=== PATIENT | male | born 1945 | race Caucasian/White ===

== ENCOUNTER 2021-09-22 12:29 | Emergency (ER) | payer MEDICARE ==
[~2021-09-22] VITALS: Ht 182.9 cm; Wt 96.2 kg
[2021-09-22 12:53] VITALS: BP 160/81
[2021-09-22] MEDS ORDERED: LACTATED RINGERS 1,000 ML IV STA (12:57)
[2021-09-22] MEDS ORDERED: ZOFRAN IV STA (12:57)
--- NOTE | 2021-09-22 13:03 | NUR ---
ARRIVAL PATIENT ARRIVED TO ED4 VIA W/C WITH FAMILY, C/O NAUSEA,DISSINESS AND POSSIBLE DEHYDRATION, PATIENT STATES THIS HAPPENS SOMETIMES, CAME TO THE ED FOR EVAL, DOCTOR ARMANDO TO THE ROOM TO SEE PATIENT.
--- NOTE | 2021-09-22 13:05 | ER.PDOC ---
General Chief Complaint: Dizziness Stated Complaint: DIZZY,NAUSEA,POSSIBLE DEHYDRATION Time seen by MD: 13:02 Source: patient Exam Limitations: no limitations History of Present Illness Initial Comments Dizziness, nausea and possible dehydration today. Patient has a large part of his colon removed about 19 years ago and told me that when he feels this way he is dehydrated. He has been going through this for the past 19 years and so he usually goes to the emergency room and receive IV fluids and usually symptoms resolve. No chest pain or shortness of breath. No vomiting, diarrhea or abdominal pain. He denies headache. Occurred: this morning Severity: mild Worsened By: nothing Prior symptoms/Treatment: Similar symptoms previous Allergies: Coded Allergies: Penicillins (Verified Allergy, Unknown, ., 09/22/21) formaldehyde (Verified Allergy, Unknown, 09/22/21) hydromorphone (Verified Allergy, Unknown, 09/22/21) Uncoded Allergies: MYCIN (Allergy, Unknown, 09/22/21) Past Medical History Medical History: diabetes, hypertension Surgical History: other Family History Significant Family History: no pertinent family hx Social History Smoking: non-smoker Alcohol Use: none Drug Use: none Review of Systems Constitutional: no symptoms reported Ears: dizziness Throat: no symptoms reported Respiratory: no symptoms reported Cardiovascular: no symptoms reported Gastrointestinal: see HPI Genitourinary: no symptoms reported All Other Systems: Reviewed and Negative Physical Exam General Appearance: alert, no distress EENT: nml eye inspection, PERRL, no nystagmus, nml ENT inspection, pharynx nml, TM's nml Neck: supple Respiratory: no resp distress, breath sounds nml CVS: reg rate & rhythm, heart sounds.nml Abdomen: non-tender, no organomegaly, no distention Skin: color nml, no rash, warm/dry Extremities: non-tender, nml ROM, no pedal edema Neuro/Psych: nml orientation, nml speech/cognition, nml mood/affect Cranial Nerves: nml as tested, no evidence of acute CVA Sensorimotor: nml motor, nml sensation Results/Orders Results/Orders Orders - VIVEK ROBERTS MD Cbc With Auto Diff (09/22/21 12:57) Ekg-Routine (09/22/21 12:57) Troponin I High Sensitivity (09/22/21 12:57) Urinalysis (09/22/21 12:57) Basic Metabolic Panel (09/22/21 12:57) Ringer's Solution,Lactated (Lactated Rin (09/22/21 12:57) Ondansetron Hcl/Pf (Zofran) (09/22/21 12:57) Ringer's Solution,Lactated (Lactated Rin (09/22/21 13:06) Ondansetron Hcl/Pf (Zofran) (09/22/21 13:06) Vital Signs Date Time Temp Pulse Resp B/P (MAP) Pulse Ox O2 Delivery O2 Flow Rate FiO2 09/22/21 14:03 98.0 66 18 155/81 (105) 99 Room Air 09/22/21 12:53 98.0 68 18 99 09/22/21 12:53 98.0 68 18 160/81 (107) 99 Room Air 09/22/21 12:53 98.0 68 18 Administered Medications Medications (Trade) Dose Ordered Sig/Shea Route PRN Reason Start Time Stop Time Status Last Admin Dose Admin Ondansetron HCl (Zofran) 4 mg STAT STAT IV 09/22/21 12:57 09/22/21 13:02 DC 09/22/21 13:09 4 MG Laboratory Tests Test 09/22/21 13:05 09/22/21 13:45 White Blood Count 7.0 10^3/uL (4.5-11.0) Red Blood Count 5.55 10^6/uL (4.50-5.90) Hemoglobin 18.1 g/dL (13.9-16.3) H Hematocrit 51.1 % (37.0-53.0) Mean Corpuscular Volume 92.1 fL (78-100) Mean Corpuscular Hemoglobin 32.6 pg (26-34) Mean Corpuscular Hemoglobin Concent 35.4 g/dL (33-36.5) Red Cell Distribution Width 13.1 % (11.5-14.5) Platelet Count 159 10^3/uL (150-400) Mean Platelet Volume 9.5 fL (7.8-11.0) Neutrophils (%) (Auto) 80.7 % (41.0-85.0) Lymphocytes (%) (Auto) 13.6 % (24.0-44.0) L Monocytes (%) (Auto) 4.7 % (5.0-12.0) L Neutrophils # (Auto) 5.7 10^3/uL (1.8-7.7) Lymphocytes # (Auto) 0.95 10^3/uL1 (1.0-4.8) L Monocytes # (Auto) 0.3 10^3/uL (0.3-0.8) Absolute Immature Granulocyte (auto 0.03 10^3 u/L (0-2) Absolute Eosinophils (auto) 0.0 10^3/uL (0.0-0.2) Immature Granulocytes % 0.40 % (0.00-0.50) Eosinophils % 0.6 % (0.0-5.0) Basophils % 0.4 % (0.0-0.2) H Basophils # 0.0 10^3/uL (0.0-0.1) Sodium Level 138 mmol/L (132-145) Potassium Level 3.7 mmol/L (3.6-5.2) Chloride Level 101.0 mmol/L (96-109) Carbon Dioxide Level 30.3 mmol/L (20.0-32) Glucose Level 101 mg/dL (70-110) Blood Urea Nitrogen 12 mg/dL (7-18) Creatinine 1.24 mg/dL (0.59-1.40) Calcium Level 9.0 mg/dL (8.4-10.5) Anion Gap 10.4 Estimated GFR () 68.8 (>/=60) Est GFR (CKD-EPI)(Non-Afr [place]) 56.8 (>/=60) BUN/Creatinine Ratio 9.0 Troponin I High Sensitivity 10 ng/L (0-75) Urine Collection Type UNKNOWN Urine Color YELLOW Urine Appearance CLEAR Urine Bilirubin NEGATIVE (NEGATIVE) Urine Ketones NEGATIVE (NEGATIVE) Urine Specific [place] 1.015 (1.005-1.030) Urine pH 7.5 (4.5-8.0) Urine Protein NEGATIVE (NEGATIVE) Urine Urobilinogen 0.2 E.U./dL (0.2) Urine Nitrate NEGATIVE (NEGATIVE) Urine Leukocyte Esterase NEGATIVE (NEGATIVE) Urine Glucose (Auto)(UA) NEGATIVE (NEGATIVE) Urine Blood NEGATIVE (NEGATIVE) Progress Progress Urinalysis negative, CBC and chemistry are normal. Troponin is normal. Patient received a liter of NS and had his dizziness has completely resolved. He is feeling better to go home. EKG/XRAY/CT/US EKG: NSR, LVH EKG Comments: HR 66 ER DEPART Departure Time of Disposition: 14:33 Disposition: 01 HOME / SELF CARE / HOMELESS Impression: Primary Impression: Dizziness and giddiness Additional Impression: Dehydration Condition: Improved Referrals: PCP,UNKNOWN (PCP) PRIMARY CARE PROVIDER Additional Instructions: Push fluids at home Follow-up with your PCP in 2 to 3 days Return to ED if worsening or concerns Duration or Time Spent with Pa: 30 min Problem Qualifiers ARMANDO,VIVEK Acuna MD Sep 22, 2021 13:05
[2021-09-22] MEDS ORDERED: LACTATED RINGERS 1,000 ML ONE (13:06)
[2021-09-22] MEDS ORDERED: ZOFRAN ONE (13:06)
--- NOTE | 2021-09-22 13:10 | PCM.EKG ---
[facility] Test Date: 2021-09-22 Test Time: 13:08:05 Pat Name: BRETT BELLA Department: Room: Gender: M [employer] Designer: kirby : 1945 Requested By: VIVEK ROBERTS Order Number: [id number] Reading MD: Vivek ROBERTS Measurements Intervals [place] Rate: 66 P: 19 [place]: 160 QRS: -9 QRSD: 103 T: 2 QT: 433 QTc: 454 Interpretive Statements Sinus rhythm Low voltage, precordial leads Left ventricular hypertrophy No previous ECG available for comparison Electronically Signed On 09-24-2021 9:16:51 CDT by Vivek ROBERTS Please click the below link to view image of tracing.
[2021-09-22 13:16] LABS: BASOPHIL % 0.4 % (0.0-0.2); EOSINOPHIL % 0.6 % (0.0-5.0); LYMPHOCYTES # 0.95 10^3/uL1 (1.0-4.8); LYMPHOCYTES % 13.6 % (24.0-44.0); MEAN CORP HGB 32.6 pg (26-34); MONOCYTES # 0.3 10^3/uL (0.3-0.8); MONOCYTES % 4.7 % (5.0-12.0); NEUTROPHIL # 5.7 10^3/uL (1.8-7.7); NEUTROPHILS % 80.7 % (41.0-85.0); RED CELL DISTRIBUTION WIDTH 13.1 % (11.5-14.5)
[2021-09-22 13:30] LABS: CARBON DIOXIDE 30.3 mmol/L (20.0-32)
[2021-09-22 13:52] LABS: BILIRUBIN,URINE NEGATIVE (NEGATIVE); UROBILINOGEN,URINE 0.2 E.U./dL (0.2)
[2021-09-22 14:03] VITALS: BP 155/81
== END 2021-09-22 14:44 | disposition home or self-care (01) ==
LOC: ER 12:29
DX: E86.0 Dehydration (principal); R42 Dizziness and giddiness; I10 Essential (primary) hypertension; E11.9 Type 2 diabetes mellitus without complications; Z88.0 Allergy status to penicillin; Z88.5 Allergy status to narcotic agent
CPT/HCPCS: 36415; 80048; 81003; 84484; 85025; 93005; 96361; 96374; 99284; J2405; J7120